=== PATIENT | male | born 1975 | race Caucasian/White ===

== ENCOUNTER → 2018-03-05 | Outpatient (CLI) | payer OTHER | END | disposition home or self-care (01) | LOC: MRI 10:00 | DX: M51.27 Other intervertebral disc displacement, lumbosacral region (principal) ==

== ENCOUNTER 2018-10-30 16:04 | Emergency (ER) | payer OTHER ==
[~2018-10-30] VITALS: Wt 90.7 kg
[2018-10-30] MEDS ORDERED: AMOXICILLIN875 MG PO (17:09)
[2018-10-30] MEDS ORDERED: TYLENOL EXTRA500 MG PO (17:09)
== END 2018-10-30 17:16 | disposition home or self-care (01) ==
LOC: ED 16:04
DX: J02.0 Streptococcal pharyngitis (principal); B34.9 Viral infection, unspecified; F17.200 Nicotine dependence, unspecified, uncomplicated